=== PATIENT | female | born 1930 | race Caucasian/White ===

== ENCOUNTER 2016-11-11 06:26 | Outpatient (CLI) | payer MEDICARE, BC ==
[~2016-11-11] VITALS: Ht 171.4 cm; Wt 102.7 kg
--- NOTE | ~2016-11-11 | CATH ---
Cardiac Diagnostic + PCI Report Demographics Patient Name PALMIRA Linda Gender Female Date of 1930 Age 86 year(s) Patient Number [id number] Date of Study 11/11/2016 Visit Number [id number] Room Number G6[address] [place] [id number] Ht 170.1 cm Wt 104.5 kg Referring Maria Isabel White Primary Physician Physician Performing Mnoo Pollack MD Secondary Physician Physician Diagnostic Mono Pollack MD Assisting Physician Physician Interventional Mono Pollack MD Physician Chemistry Technical Officer Physician Findings and Conclusions Diagnostic Findings and Conclusion 1. Severe 1 vessel CAD. Diagnostic Recommendations 1. PCI LAD. Interventional Findings and Conclusion 1. .014 Prowater. 2. 2.5X15 Emerge. 3. 2.5x16 Rebel overlap with 2.75x12 Rebel. 4. 3.25x8 Emerge and 3.5x8 Emerge. 5. 85% Pre-stenosis to 0% post. Interventional Recommendations 1. DAP x 1 month. 2. Routine Post Angioseal. Procedure Description The patient was brought to the diagnostic cardiac catheterization-EP laboratory in the fasting, non-sedated state. Informed consent was obtained in the written and verbal form after the risks and benefits were explained. The patient had no further questions and agreed to proceed. The planned puncture-incision site(s) were shaved and prepped with ChloraPrep and draped in the usual sterile manner. Conscious sedation, supplemental oxygen, and pain control medications were delivered by a registered nurse under physician guidance. Surface ECG rhythm, blood pressure measurement, and pulse oximetry were monitored throughout the procedure. Arterial access. The access site was infiltrated with lidocaine. The vessel was entered with the Seldinger technique. A sheath was advanced into the vessel and used for catheter placement. Selective left coronary angiography. A catheter was advanced into the left coronary vessel ostium under Fluoroscopic guidance. Contrast was injected by hand. Images were obtained in multiple projections. Selective right coronary angiography. A catheter was advanced into the right coronary vessel ostium under fluoroscopic guidance. Contrast was injected by hand. Images were obtained in multiple projections. Left heart catheterization. A catheter was advanced across the aortic valve to the left ventricle under fluoroscopic guidance. Resting hemodynamics were obtained. Stent Placement: A guiding catheter was used to intubate the vessel. A 0.14 wire was used to cross the lesion. A Drug Eluting Stent was placed. Post placement angiograms were performed. Arterial artery hemostasis was achieved. The patient was transferred to a regular nursing floor via cart accompanied by a nurse. The patient left the laboratory in stable condition. Diagnostic Cath Status: Elective Interventional Cath Status: Urgent Procedure Procedure Type Diagnostic procedure:Angiography:, Coronary Angios, [facility] PCI procedure:Drug Eluting Coronary Stent:, LAD Indications: Positive Standard Stess: Intermediate. The procedure was explained in detail to the patient. Risks, complications and alternative treatments were reviewed. Written consent was obtained. Medications Reviewed with Patient prior to Procedure. Angiographic Findings Dominance: Left Cardiac Arteries and Lesion Findings LMCA: Normal (0% Stenosis).normal. LAD: Abnormal.medium diffuse stenosis. Lesion on Prox LAD: Proximal subsection.85% stenosis 28 mm length reduced to 0%. Pre procedure RICHY I flow was noted. Post Procedure RICHY III flow was present. The guidewire cross was successful.A poor run off was present.The lesion was diagnosed as a moderate risk lesion.Culprit lesion. Devices used - Prowater Wire .014 x 180. Number of passes: 1. - Emerge Balloon 2.5 x 15. 2 inflation(s) to a max pressure of: 10 gustavo. - 2.5 x 16 Rebel Stent. 2 inflation(s) to a max pressure of: 16 gustavo. - 2.75 x 12 Rebel Stent. 1 inflation(s) to a max pressure of: 13 gustavo. - Emerge Balloon 3.25 x 8. 3 inflation(s) to a max pressure of: 12 gustavo. - NC Emerge Balloon 3.5 x 8. 1 inflation(s) to a max pressure of: 19 gustavo. LCx: Abnormal.large, diffuse plaque. OM1 medium ok. OM2 large ok. RCA: Normal (0% Stenosis).medium. ok Coronary Tree Procedure Data Procedure Date Date: 11/11/2016Start: 08:51 AMEnd: 10:07 AM Entry Locations - Retrograde Percutaneous access was performed through the Right Femoral artery (Primary location). A 6 Fr sheath was inserted. Hemostasis was successfully obtained using Angio-Seal STS PLUS ([place]). Closure Comments: Performed by viv alvarado. Procedure Medications Order and Administration + + + + + !Time !Medication !Dosage !Route ! + + + + + !11/11/2016 08:50 !Fentanyl !25 mcg !I.V. ! !AM ! ! ! ! + + + + + !11/11/2016 09:09 !Nipride !50 mcg !I.C. ! !AM ! ! ! ! + + + + + !11/11/2016 09:10 !Angiomax (Bivalirudin) !80 ml !I.V. bolus ! !AM !(ACC_5) ! ! ! + + + + + !11/11/2016 09:11 !Angiomax (Bivalirudin) !1.75 mg/kg/hr!I.V. drip ! !AM !(ACC_5) ! ! ! + + + + + !11/11/2016 09:16 !Oxygen !2 l/min ! ! !AM ! ! ! ! + + + + + !11/11/2016 09:24 !Nipride !50 mcg !I.C. ! !AM ! ! ! ! + + + + + !11/11/2016 09:37 !Brilinta (Ticagrelor) !180 mg !P.O. ! !AM !(ACC_20) ! ! ! + + + + + !11/11/2016 09:52 !Oxygen !0 l/min ! ! !AM ! ! ! ! + + + + + !11/11/2016 09:52 !Angiomax (Bivalirudin) !0 mg/kg/hr !I.V. drip ! !AM !(ACC_5) ! ! ! + + + + + Devices Used - A6 Fr. BS JL 4 Diag. Catheterwas used for:Left coronary angiography. - A6 Fr. BS JR 4 Diag. Catheterwas used for:Right coronary angiography. - A6 Fr. BS Angled Pigtail Diag. Catheterwas used for:LV Pressures. - A6 Fr. XB 3.5 Guide Catheterwas used for:LAD Intervention. Contrast Material - Isovue [id number] ml Fluoroscopy Time: Diagnostic: 17:06 minutes. Total: 17:06 minutes. Fluoroscopy Dose: Diagnostic: 2924 mGy. Total: 2924 mGy. Estimated Blood Loss: 4.5 ml. Additional [facility] PCI Information PCI Indication:PCI for high risk Non-STEMI or unstable angina. Medical History Allergies - Other. Risk Factors The patient risk factors include:treated hypertension, family history of premature CAD, chronic lung disease, last creatinine: 1.7 mg/dl, creatinine clearance: 37.74 ml/min and prior heart failure . Admission Data Admission Date: 11/11/2016 Admission Time: 06:26 AM Admit Source: Other Insurance Payors: Medicare. Clinical Evaluation Leading to Procedure - There were no CAD presentation symptoms. - There were no anginal symptoms. Hemodynamics Condition: Rest O2 Consumption: Estimated: 189.72Heart Rate: 70 bpm Pressures (mmHg) +-----+ + !Site !Pressure ! +-----+ + !AO !179/117 (151) ! +-----+ + !LV !140/1 ,16 ! +-----+ + !AO !142/62 (95) ! +-----+ + !LV !140/0 ,15 ! +-----+ + !LV !141/1 ,12 ! +-----+ + !AO !145/63 (96) ! +-----+ + !LV !140/0 ,15 ! +-----+ + Valve Gradients and Areas + +---------+---------+---------+ +---------+ + !Valve !Peak !Mean !Area !Index !Flow !Source ! + +---------+---------+---------+ +---------+ + !Aortic !0 !0 ! ! ! ! ! + +---------+---------+---------+ +---------+ + !Aortic !0 !0 ! ! ! ! ! + +---------+---------+---------+ +---------+ + Shunts Oxygen Values O2 Consumption 189.72 Discharge Data Discharge Date: 11/12/2016 Hospital Status: Outpatient Signatures dtt: Ranjeet Villareal (cardio) dtd: 11/11/16 0851 Physician Self Edit
[~2016-11-11 06:26] MED LIST: ADVIL200 M1 PO; ALDACTONE25 MG PO; ALLEGRA ALLERG180 MG PO; ALLEGRA180 MG PO; ARTHRITIS PAIN650 M2 PO; ASPIRIN (CHILDR81 MG; CARDIZEM CD360 MG PO; CLOBETASOL EMOL15 GM TOP; COLACE100 MG PO; COREG3.125 MG PO; COUMADIN ** IA3 MG PO; CYMBALTA60 MG PO; DILTIAZEM 24HR300 M1 PO; DOUBLE ANTIBI28.4 GM OPHTH; DRY MOUTH45 ML PO; DULCOLAX10 MG R; DULCOLAX5 MG PO; GAS-X125 M1 PO; I-VITE TABLET1 EACH PO; LASIX40 MG PO; LASIX80 M1 PO; LEVAQUIN750 MG PO; LEVOTHROID (SY88 MCG PO; LEVOTHROID(SYN75 MCG PO; LOVENOX 8080 MG/0.8 SUB-Q; MILK OF MA400 MG/5 M PO; MINTOX SUSPENS355 ML PO; MIRALAX17 GM PO; MYCOSTATIN CREA30 GM TOP; NASA MIST SALI177 ML NOSE; NITROSTAT0.4 MG PO; NYSTATIN1 EAC1 TOP; PERIOGARD473 ML PO; PRESERVISION L1 EACH PO; PRILOSEC10 MG; PROTONIX40 MG PO; REFRESH CLASSI1 EACH OPHTH; RESTASIS 0.05%1 VIAL OPHTH; SYSTANE ULTRA 010 ML OPHTH; TOPICORT 0.25%15 GM TOP; TUMS REGULAR ST1 TAB PO; TYLENOL325 MG PO; ULTRAM50 MG PO; UREA85 G1 TOP; VASELINE97.5 ML NOSE; VENOFER200 MG/10 IV; VESICARE5 MG PO; [UNRECOGNIZED DRUG - OTHER]
--- NOTE | 2016-11-11 18:57 | NUR ---
Significant Event: A/O x3, cooperative with cares. VSS, SBPs 160s, HRs 70s, on room air. No c/o pain. 0.25mg of ativan given at 1218 for c/o anxiety; patient states that did help a little. Daughter states that patient is a worry wart about her health et does tend to get self worked up. Cath site to R) groin; soft, non-tender et ecchymotic; gauze et tegaderm dressing C/D/I. Site was oozing; manual pressure applied for 5 minutes; laboratory animal caretaker notified et suggested applying a fem stop to site. Fem stop applied et Dr. Villareal notified et called for orders. Fem stop on for 1 hours at 60 mmHG; no oozing noted since. Up with assist of 1 et walker to bathroom et chair. Follow up:d/c tomorrow
[2016-11-12 03:58] LABS: BASOPHIL # 0.1 K/uL (0.0-0.2); BASOPHIL % 0.4 %; EOSINOPHIL # 0.1 K/uL (0.0-0.5); EOSINOPHIL % 0.8 %; HEMATOCRIT 41.3 % (30.0-46.0); HEMOGLOBIN 13.4 g/dL (10.0-15.0); IMMATURE GRANULOCYTE # 0.1 K/uL (0.0-0.3); IMMATURE GRANULOCYTE % 0.4 %; LYMPHOCYTE # 1.5 K/uL (0.8-4.0); LYMPHOCYTE % 12.6 %; MCH 31.2 pg (27.0-34.0); MCHC 32.4 gm/dL (32.0-36.5); MCV 96.3 fl (83.0-98.0); MONOCYTE # 1.2 K/uL (0.0-1.0); MONOCYTE % 9.9 %; MPV 9.5 fl (9.4-12.4); NEUTROPHIL % 75.9 %; NRBC % 0 /100WBC (0-0.00); PLATELET COUNT 254 K/uL (150-450); RBC 4.29 M/uL (3.00-5.00); RDW-CV 13.2 % (11.9-14.6); WBC 11.9 K/uL (4.0-11.0)
[2016-11-12 04:04] LABS: INR - (THERAPEUTIC) 1.1 (0.9-1.1); PROTIME 11.2 SECONDS (9.6-11.1)
[2016-11-12 04:12] LABS: ALBUMIN 3.5 gm/dL (3.5-5.0); ANION GAP 14.3 (10.0-19.0); CALCIUM 9.5 mg/dL (8.5-10.5); CREATININE 1.2 mg/dL (0.5-1.1); POTASSIUM 4.3 mMol/L (3.7-5.1); TOTAL BILIRUBIN 0.8 mg/dL (0.0-1.5); TOTAL PROTEIN 7.3 g/dL (6.0-8.4)
--- NOTE | 2016-11-12 05:14 | NUR ---
Significant Event: DENIES PAIN ALL NIGHT. UP WITH 1 ASSIST MULTIPLE TIMES TO THE BR. 2L O2 APPLIED SINCE SHE NORMALLY WEARS CPAP AT HOME. PT STATED THE FLUTTERING IN HER CHEST STOPPED AFTER THE O2 WAS APPLIED. GROIN REMAINS SOFT WITHOUT BRUISING AND DRAINAGE. Follow up: HOME TODAY?
[2016-11-12] MEDS ORDERED: ARTIFICIAL TEA3.5 G1 IO (10:41)
[2016-11-12] MEDS ORDERED: ARTIFICIAL TEAR15 ML OPHTH (10:53)
[2016-11-12] MEDS ORDERED: ASPIRIN (CHILDR81 MG PO (10:56)
[2016-11-12] MEDS ORDERED: NASAL SPRAY44 ML NOSE (11:03)
[2016-11-12] MEDS ORDERED: COUMADIN ** IA3 MG PO (11:14)
[2016-11-12] MEDS ORDERED: BRILINTA90 MG PO (11:22)
[2016-11-12] MEDS ORDERED: AFRIN) (GENASAL15 ML NOSE (11:30)
--- NOTE | 2016-11-12 19:50 | NUR ---
Significant Event: A/O x3, cooperative with cares this shift. VSS, SBPs 130-150s, HRs 70-80s, on room air. No c/o pain. R) groin soft, non-tender; dressing C/D/I. Up ambulate lu with walker et assist of 1; up to chair. Dismissal instructions given to daughter et patient; verbalized understanding. Dismissed to front lobby per w/c accompanied by nursing specialist. Follow up:
== END 2016-11-12 11:30 | disposition disaster alternative care site (69) ==
LOC: GPOC 06:26 → GPCU 06:26 → GPOC 07:00 → GPCU 09:19 → GPOC 11-12 11:30
PROVIDERS: Internal Medicine Interventional Cardiology
PROC: 027035Z Dilation of Coronary Artery, One Artery with Two Drug-eluting Intraluminal Devices, Percutaneous Approach (ICD-10-PCS; principal; 2016-11-11)
PROC: B2111ZZ Fluoroscopy of Multiple Coronary Arteries using Low Osmolar Contrast (ICD-10-PCS; principal; 2016-11-11)
PROC: 4A023N7 Measurement of Cardiac Sampling and Pressure, Left Heart, Percutaneous Approach (ICD-10-PCS; principal; 2016-11-11)
DX: I25.10 Atherosclerotic heart disease of native coronary artery without angina pectoris (principal); I48.2 Chronic atrial fibrillation; E03.9 Hypothyroidism, unspecified; G47.33 Obstructive sleep apnea (adult) (pediatric); I10 Essential (primary) hypertension; H04.123 Dry eye syndrome of bilateral lacrimal glands; J98.4 Other disorders of lung; Z79.01 Long term (current) use of anticoagulants; Z79.1 Long term (current) use of non-steroidal anti-inflammatories (NSAID); Z79.891 Long term (current) use of opiate analgesic; Z79.899 Other long term (current) drug therapy; Z95.0 Presence of cardiac pacemaker; Z82.49 Family history of ischemic heart disease and other diseases of the circulatory system
CPT/HCPCS: C1725; C1760; C1769; C1876; C1887; J0583; J1644; J2001; J3010; J7050; J7060